=== PATIENT | male | born 1985 | race Caucasian/White ===

== ENCOUNTER 2020-05-23 05:00 | Emergency (ER) | payer SELFPAY ==
--- NOTE | 2020-05-23 05:03 | US_ITS ---
WS: [id number] SCROTAL ULTRASOUND EXAMINATION CLINICAL INFORMATION: testicle pain COMPARISON: None. FINDINGS: Right testicle removed. Left testicle Normal in size and echotexture, without focal lesion. Color Doppler: Normal color Doppler flow pattern. Right testes size: Removed Left testes size: 4.7 cm x 2.9 cm x 2.5 cm. EPIDIDYMIDES Enlarged left epididymis with increased vascularity compatible with epididymitis. HYDROCELE Left hydrocele. VARICOCELE None. OTHER FINDINGS Left spermatocele measuring 5 x 3 mm US/US scrotum [id number] IMPRESSION: 1. Right testicle removed 2. Left Epididymitis 3. Normal left testicle. 4. Moderate size left hydrocele.
[2020-05-23 05:09] VITALS: BP 138/81; PULSE 85; RESP 12; TEMP 36.6; O2SAT 100; BMI 24.0
--- NOTE | 2020-05-23 05:09 | ED_ITS ---
HPI - Male Genitourinary General: Chief complaint: Urogenital-Male Stated complaint: sent from the [facility] for ultrasound on testicles Time Seen by Provider: 05/23/20 05:05 Source: patient Mode of arrival: ambulatory Limitations: no limitations History of Present Illness: HPI Narrative: 34-year-old male states been having testicle pain over the last 2 days. He states that he had some swelling. He states the pain is a 5 out of 10 at rest but is much worse with any palpation. Denies any abdominal pain denies any vomiting or diarrhea. 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 He denies any penile discharge or pain. MD Complaint: testicle pain Onset (ago): day(s) Duration: constant Associated symptoms: Deny nausea or vomiting Review of Systems Const: Denies: fever(s), chills, body aches or change in appetite Eyes: Denies: blurry vision or eye discomfort ENMT: Denies: throat pain or dental pain Card: Denies: chest pain Resp: Denies: dyspnea GI: Denies: abdominal pain, nausea, vomiting or diarrhea : Reports: testicular pain and scrotal swelling Musc: Denies: neck pain or back pain Skin/Breast: Denies: rash Neuro: Denies: headache(s) Psych: Denies: depression Sean/Lymph: Denies: easy bruising All/Imm: Denies: urticaria Physical Exam Const: COMMON NORMALS: no acute distress, patient oriented x3 and healthy appearing HENMT: COMMON NORMALS: normocephalic and atraumatic HEAD & SCALP: normocephalic and atraumatic Eye: COMMON NORMALS: Equal, round and reactive pupils present and EOMs intact bilaterally PUPIL: Yes Equal, round and reactive pupils present Neck/C-Spine: COMMON NORMALS: full ROM and supple Chest: COMMONS NORMALS: normal inspection of the chest and normal palpation of entire chest wall Resp: COMMON NORMALS: normal respiratory effort, No retractions, No use of accessory muscles and clear to auscultation bilaterally AUSCULTATION: clear to auscultation bilaterally Cardio: COMMON NORMALS: regular rate, regular rhythm and No murmurs present (Cardio) RATE: regular rate RHYTHM: regular rhythm GI: COMMON NORMALS: Normal to inspection, nondistended, normoactive bowel sounds present, Soft to palpation, non-tender and no masses PALPATION: Yes Soft to palpation : OTHER: Patient has 1 testicle testicle is slightly swollen and tender to touch Extremity: COMMON NORMALS: normal to inspection and full ROM Neuro: COMMON NORMALS: patient oriented x3, moves all extremities and no focal motor deficits Psych: COMMON NORMALS: mental status grossly normal, Normal thought process present and cooperative THOUGHT PROCESS: Normal thought process present Skin: COMMON NORMALS: no rashes or lesions noted and no wounds GENERAL SKIN EXAM: no rashes or lesions noted Course Vital Signs: Vital signs: Vital Signs Temperature 97.9 F 05/23/20 05:09 Pulse Rate 82 05/23/20 05:59 Respiratory Rate 14 05/23/20 05:59 Blood Pressure 112/74 05/23/20 05:59 Pulse Oximetry 100 05/23/20 05:59 MDM - Male MDM Narrative: Medical decision making narrative: Patient presents with epididymitis with no signs of torsion. He is stable for discharge and I will put him on pain meds along with doxycycline. He is to follow-up his PCP and return if worsening. He understands and agrees to plan. Imaging Data: US: Attestation: I personally reviewed and interpreted this imaging study as fol lows: My impression: epididymitis Discharge Plan Discharge Patient Disposition: Home Clinical Impression: Epididymitis Condition: Stable Prescriptions: [place] 5-325 mg tablet 1 tab PO Q6H PRN (Reason: pain) Qty: 14 RF: 0 ondansetron 4 mg tablet,disintegrating 4 mg PO Q6H PRN (Reason: nausea and vomiting) Qty: 14 RF: 0 doxycycline hyclate 100 mg capsule 100 mg PO BID 14 Days Qty: 28 RF: 0 Discharge Orders: Discharge ED (Routine); Ordered 05/23/20 Ordered By: Lauro Charles Referrals: Jaziel Brennan MD [Physician] - 1-3 days Discharge Diet: Advance as tolerated Discharge Activity: Resume usual activity Patient Instructions: Epididymitis (ED) Coding Level of Care Code ED Customer Contact Specialist for [employer] Fwd Exam Comprehensive
[2020-05-23 05:16] VITALS: BP 138/81; PULSE 84; RESP 12; O2SAT 100
[2020-05-23] MEDS: HYDROcodone-acetaminophen 5-325 mg Tablet 1 TAB PO (05:20)
[2020-05-23 05:59] VITALS: BP 112/74; PULSE 82; RESP 14; O2SAT 100
== END 2020-05-23 06:00 | disposition home or self-care (01) ==
PROVIDERS: Emergency Provider Emergency Medicine
DX: N45.1 Epididymitis (principal)
CPT/HCPCS: 12345; 76870; 99281; 99283

== ENCOUNTER 2020-12-19 01:00 | Emergency (ER) | payer SELFPAY ==
[2020-12-19 01:07] VITALS: BP 136/71; PULSE 90; RESP 18; TEMP 36.2; O2SAT 95; BMI 25.4
--- NOTE | 2020-12-19 01:18 | USR_ITS ---
PROCEDURE INFORMATION: Exam: US Scrotum and Artery or Vein of the Abdominal and/or Reproductive Organs, Limited Scrotum Exam date and time: 12/19/2020 1:18 AM Age: 35 years old Clinical indication: Scrotum pain; Prior surgery; Surgery date: 6+ months; Surgery type: Lt test removed; Additional info: Testicular swelling TECHNIQUE: Imaging protocol: Real-time ultrasound of the scrotum. Real-time duplex ultrasound scan of the arterial or venous flow with britton scale, color Doppler flow and spectral waveform analysis with image documentation. Limited Duplex exam focused of the scrotum. Duplex images required to evaluate for torsion and other vascular conditions. COMPARISON: US scrotum [id number] 05/23/2020 5:14 AM FINDINGS: Right testicle: Unremarkable. Normal right testicular blood flow and waveform. Left testicle: Left orchidectomy. Epididymides: Thickened, hypervascular right epididymis. Scrotum: Moderate right hydrocele with numerous septations. US/US scrotum [id number] IMPRESSION: 1. Left orchidectomy. 2. Right epididymitis. 3. Moderate right hydrocele with numerous septations. 4. No right testicular torsion.
--- NOTE | 2020-12-19 01:20 | W.ED.MALEGU ---
HPI - Male Genitourinary General: Chief complaint: Urogenital-Male Stated complaint: Testicles Swollen Time Seen by Provider: 12/19/20 01:09 History of Present Illness: HPI Narrative: 35 yo male here with left testicle pain, patient has history of previous epididymitis. Patient started having pain yesterday with increased swelling and tenderness today. Patient reports return tobacco and marijuana use. Review of Systems General: Reports: 10 or more systems reviewed and unremarkable except in HPI and below : Reports: testicular pain Physical Exam Const: COMMON NORMALS: no acute distress and patient oriented x3 GENERAL APPEARANCE: cooperative HENMT: COMMON NORMALS: normocephalic and Normal external nose present HEAD & SCALP: normal to inspection and normocephalic NOSE: Normal external nose present Eye: GENERAL EYE: appearance normal, both eyes and all related structures Neck/C-Spine: COMMON NORMALS: full ROM Chest: COMMONS NORMALS: normal inspection of the chest Resp: COMMON NORMALS: normal respiratory effort EFFORT & INSPECTION: Yes able to speak in complete sentences Cardio: COMMON NORMALS: regular rate and regular rhythm RATE: regular rate RHYTHM: regular rhythm GI: COMMON NORMALS: non-tender : PENIS: normal penis SCROTUM: Yes Cremasteric reflex present and Yes Scrotal tenderness present (left testicle swelling and tenderness, no redness) TESTES: Yes testicular lie normal and Yes absent testicle Testes absent laterality: right Back/Pelvis: COMMON NORMALS: thoracic and lumbar spine normal to inspection Extremity: COMMON NORMALS: normal to inspection Neuro: COMMON NORMALS: patient oriented x3 and moves all extremities Psych: COMMON NORMALS: mental status grossly normal and cooperative Skin: COMMON NORMALS: no rashes or lesions noted GENERAL SKIN EXAM: no rashes or lesions noted Course Vital Signs: Vital signs: Vital Signs Temperature 97.1 F L 12/19/20 01:07 Pulse Rate 90 12/19/20 01:07 Respiratory Rate 18 12/19/20 01:07 Blood Pressure 136/71 12/19/20 01:07 Pulse Oximetry 95 12/19/20 01:07 MDM - Male MDM Narrative: Medical decision making narrative: Patient comes in for left testicle tenderness and swelling starting yesterday. Patient came in due to persistent discomfort after being seen at another [facility] in [place]. Patient is alert and oriented, Exam notes swelling of left testicle with minimal to no redness observed to scrotum. Differential diagnosis includes testicle torsion, orchitis, epididymitis. US noted epididymitis. Patient treated with ceftriaxone and doxycycline. Recommend recheck in with urology. Patient reports understanding. Requested case management to assist with urology referral. Lab Data: Labs: Lab Results 12/19/20 Range/Units 01:40 WBC 23.7 H (4.0-10.0) 10^3/ uL RBC 4.77 (4.1-5.3) 10^6/u L Hgb 14.4 (11.7-16.6) g/dL Hct 43.2 (42.0-52.0) % MCV 90.6 (80-94) fl MCH 30.2 (28.0-34.0) pg MCHC 33.3 (30.0-36.0) g/dL RDW 13.0 (12.1-15.1) % Plt Count 290 (130-400) 10^3/c mm MPV 9.8 (7.4-10.4) fL Neut % (Auto) 84.5 % Lymph % (Auto) 7.4 % [place] % (Auto) 7.3 % Eos % (Auto) 0.0 % Baso % (Auto) 0.1 % Neut # (Auto) 20.02 H (1.8-7.7) 10^3/u L Lymph # (Auto) 1.8 (0.8-4.8) 10^3/u L [place] # (Auto) 1.7 H (0.2-0.9) 10^3/u L Eos # (Auto) 0.0 (0.0-0.8) 10^3/u L Baso # (Auto) 0.0 (0.0-0.1) 10^3/u L Nucleated RBC % (a uto) 0 % Nucleated RBCs # 0.0 /100WBC Discharge Plan Discharge Patient Disposition: Home Clinical Impression: Epididymitis, right Condition: Stable Prescriptions: New doxycycline monohydrate 100 mg capsule 100 mg PO BID 7 Days Qty: 14 RF: 0 hydrocodone-acetaminophen 5-325 mg tablet 1 tab PO Q6H PRN (Reason: pain (scale score 7-10)) Qty: 14 RF: 0 Continued ondansetron 4 mg tablet,disintegrating 4 mg PO Q6H PRN (Reason: nausea and vomiting) Qty: 14 RF: 0 Discontinued hydrocodone-acetaminophen [[place]] 5-325 mg tablet 1 tab PO Q6H PRN (Reason: pain) Qty: 14 RF: 0 Discharge Orders: Discharge ED (Routine); Ordered 12/19/20 Ordered By: Lj Souza Discharge Diet: Usual diet Discharge Activity: Increase activity as tolerated Patient Instructions: Epididymitis (ED), Opioid Safety Activity Restrictions/Additional Instructions: Medication as directed. Drink plenty of fluids. Follow-up with urologist. Return to ER for worsening symptoms or new concerns. Ice and heat may also be used for pain. Coding Level of Care Code ED Commercial Lending Relationship Manager for Chg Fwd Exam Comprehensive
[2020-12-19] MEDS: HYDROmorphone 1 mg/mL INJ 1 mL IVP (01:42)
[2020-12-19] MEDS: haloperidol inj 5 mg/mL INJ 1 mL IVP (01:42)
[2020-12-19] MEDS: diphenhydrAMINE 50 mg/mL SDV 1mL 12.5 MG IVP (01:42)
[2020-12-19] MEDS: sodium chloride 0.9% 1,000 ML 999 ML IV (01:43)
[2020-12-19 02:04] LABS: Basophils % 0.1 %; Hematocrit 43.2 % (42.0-52.0); Hemoglobin 14.4 g/dL (11.7-16.6); Lymphocytes # 1.8 10^3/uL (0.8-4.8); Lymphocytes % 7.4 %; Mean Corpuscular HGB Conc 33.3 g/dL (30.0-36.0); Mean Corpuscular Hemoglobin 30.2 pg (28.0-34.0); Mean Corpuscular Volume 90.6 fl (80-94); Mean Platelet Volume 9.8 fL (7.4-10.4); Monocytes # 1.7 10^3/uL (0.2-0.9); Monocytes % 7.3 %; Neutrophils # 20.02 10^3/uL (1.8-7.7); Neutrophils % 84.5 %; Nucleated Red Blood Cells % 0 %; Platelet Count 290 10^3/cmm (130-400); Red Blood Count 4.77 10^6/uL (4.1-5.3); White Blood Count 23.7 10^3/uL (4.0-10.0)
[2020-12-19] MEDS: doxycycline 100 mg Tablet PO (02:52)
[2020-12-19] MEDS: cefTRIAXone 1,000 MG in sodium chloride 0.9% (plus) 50 ML 100 MG IV (02:52)
[2020-12-19 03:11] LABS: Alanine Aminotransferase 12 U/L (0-41); Albumin Level 4.1 g/dL (3.5-5.2); Alkaline Phosphatase 45 IU/L (40-130); Anion Gap 15.4 (5-19); Aspartate Amino Transferase 16 U/L (0-40); Blood Urea Nitrogen 8 mg/dL (6-20); Calcium 8.7 mg/dL (8.5-10.5); Carbon Dioxide 26 mmol/L (22-29); Chloride 98 mmol/L (98-107); Glomerular Filtration Rate 110.7 mL/min (90-130); Glucose 129 mg/dL (65-115); Osmolality Calculated 282 mOsm/kg (285-295); Potassium 3.4 mmol/L (3.5-5.1); Sodium 136 mmol/L (136-145); Total Bilirubin 0.4 mg/dL (0.15-1.2); Total Protein 7.1 g/dL (6.6-8.7)
[2020-12-19 04:32] VITALS: BP 141/80; PULSE 72; RESP 20; O2SAT 98
--- NOTE | 2020-12-19 09:29 | DCPLANNER ---
manager financial services had message to schedule a follow up appointment for patient with Dr. Brnenan. manager financial services called the office of Dr. Brennan, spoke with Russell, gave clinic patients information. Case manger was told that patients information would be printed and reviewed. Clinic will call patient with appointment information.
--- NOTE | 2020-12-23 07:21 | DCPLANNER ---
Patient has a follow up appointment scheduled for Tuesday, January 02 at 8:[address] Brennan. Clinic will call patient with appointment information.
--- NOTE | 2021-01-07 14:55 | DCPLANNER ---
Patient had a follow up appointment scheduled for 01.02.[address] Brennan - patient did attend appointment.
== END 2020-12-19 04:25 | disposition home or self-care (01) ==
PROVIDERS: Emergency Provider Nurse Practitioner Family
DX: N45.1 Epididymitis (principal)
CPT/HCPCS: 76870; 80053; 85025; 96365; 96375; 99284; J0696; J1170; J1200; J1630; J7030

== ENCOUNTER → 2021-01-02 08:24 | Outpatient (BNVA) | payer SELFPAY | PROVIDERS: PCP Family Medicine; Visit Provider Urology | DX: N45.1 Epididymitis (principal); N50.812 Left testicular pain | CPT/HCPCS: 81003 ==